=== PATIENT | male | born 1960 | race Caucasian/White ===

== ENCOUNTER 2018-08-14 11:44 | Day surgery (SDC) | payer OTHER ==
[~2018-08-14] VITALS: Ht 188 cm; Wt 115.0 kg
[2018-08-14 13:05] VITALS: BP 127/84; PULSE 85; RESP 20
[2018-08-14 13:06] VITALS: Ht 188 cm; Wt 115.0 kg
[2018-08-14] MEDS ORDERED: LISI10TA2 PO (13:13)
[2018-08-14] MEDS ORDERED: LEVO25TA6 PO (13:13)
[2018-08-14] MEDS ORDERED: ASPI-903 PO (13:13)
--- NOTE | 2018-08-14 13:44 | PREAC ---
Date/Time of Note Date/Time of Note DATE: 08/14/18 TIME: 13:43 Anesthesia Eval and Record Evaluation Time Pre-Procedure Interview DATE: 08/14/18 TIME: 13:43 Age 58 Sex male NPO: 8 hrs Preoperative diagnosis screening for colon cancer Planned procedure colonoscopy Past Medical History Past Medical History: Includes Cardio: HTN Endo: Hypothyroid GI: Obesity Surgery & Anesthesia Issues No known issue Meds Anticoagulation: No Beta Yaa within 24 hr: No Reason Beta Yaa not given: Pt. not on B-Yaa Reported Medications Levothyroxine Sodium* (Levothyroxine Sodium*) 25 Mcg Tablet, 25 MCG PO BEFORE BREAKFAST, #30 TAB 08/14/18 Aspirin* (Aspirin* Chew) 81 Mg Tab.chew, 81 MG PO DAILY, TAB.CHEW 08/14/18 Lisinopril* (Lisinopril*) 10 Mg Tablet, 10 MG PO DAILY, #30 TAB 08/14/18 Meds reviewed: Yes Allergies Coded Allergies: No Known Drug Allergies (Verified Allergy, Unknown, 08/14/18) Allergies Reviewed: Yes Labs/Studies Labs Reviewed: Reviewed by anesthesiologist test: N/A Pre-procedure Exam Last vitals Vital Signs Date Temp Pulse Resp B/P (MAP) Pulse Ox O2 O2 Flow FiO2 Time Delivery Rate 08/14/18 96.6 85 20 127/84 95 Room Air 13:05 (98) Airway: Adequate mouth opening, Adequate thyromental dist Mallampati: Mallampati II Teeth: Normal Lung: Normal Heart: Normal ASA Physical Status ASA physical status: 2 Emergency: None Planned Anesthetic General/MAC: Mask Planned Pain Management Parenteral pain med Pre-operative Attestations Prior to commencing anesthesia and surgery, the patient was re-evaluated, there was verification of: *The patient's identity *The results of appropriate recent lab work and preoperative vital signs *The above evaluation not changing prior to induction *Anesthetic plan, risk benefits, alternative and complications discussed with pa veronika/family; questions answered; patient/family understands, accepts and wishes to proceed. YUNG VILLALTA MD Aug 14, 2018 13:44
[2018-08-14] MEDS ORDERED: PROPOFOL 40 ML ONE (15:00)
[2018-08-14] MEDS ORDERED: LIDOCAINE 2% (SDV) 5 ML INJ ONE (15:00)
[2018-08-14] MEDS ORDERED: PROPOFOL 20 ML ONE (15:19)
[2018-08-14] MEDS ORDERED: LABETALOL HCL 20MG INJ ONE (15:19)
--- NOTE | 2018-08-14 15:23 | PAC ---
Date/Time of Note Date/Time of Note DATE: 08/14/18 TIME: 15:23 Post-Anesthesia Notes Post-Anesthesia Note Last documented vital signs Vital Signs Date Temp Pulse Resp B/P (MAP) Pulse Ox O2 O2 Flow FiO2 Time Delivery Rate 08/14/18 96.6 85 20 127/84 95 Room Air 13:05 (98) Activity: WNL Respiratory function: WNL Cardiovascular function: WNL Mental status: Baseline Pain reasonably controlled: Yes Hydration appropriate: Yes Nausea/Vomiting absent: Yes Comments BP: 138/68 HR: 79 RR: 15 T: 98 SaO2: 97% YUNG VILLALTA MD Aug 14, 2018 15:23
--- NOTE | 2018-08-14 16:19 | HPN ---
Date/Time of Note Date/Time of Note DATE: 08/14/18 TIME: 16:19 Interval H&P Admission Note Pt. seen H&P reviewed: No system changes MAHESH METZGER Aug 14, 2018 16:19
== END 2018-08-14 16:02 | disposition home or self-care (01) ==
LOC: GIL 11:44
PROVIDERS: ATTEND Internal Medicine Gastroenterology
DX: Z12.11 Encounter for screening for malignant neoplasm of colon (principal); D12.0 Benign neoplasm of cecum; E03.9 Hypothyroidism, unspecified; I10 Essential (primary) hypertension
CPT/HCPCS: 45380; 88305; Z7610